=== PATIENT | male | born 1990 | race Asian ===

== ENCOUNTER 2019-04-23 20:24 | Emergency (ER) | payer BC ==
[~2019-04-23] VITALS: Ht 165.1 cm; Wt 68.0 kg
[2019-04-23] MEDS ORDERED: ACETAMINOPHEN 325 MG TAB PO ONE (21:00)
[2019-04-23 21:22] LABS: Basophils # (auto) 0 uL; Basophils % (auto) 0.4 % (0.0-2.0); Eosinophils # (auto) 0.1 uL; Eosinophils % (auto) 0.8 % (0.0-7.0); Hematocrit 43.8 % (41.0-53.0); Hemoglobin 14.7 g/dL (13.5-17.5); Lymphocytes # (auto) 2.2 uL; Lymphocytes % (auto) 19.7 % (10.0-50.0); Mean Corpuscular Hemoglobin 28.1 pg (28.0-32.0); Mean Corpuscular Hgb Conc. 33.6 g/dL (32.0-36.0); Mean Corpuscular Volume 83.7 fL (80.0-100.0); Monocytes # (auto) 1.2 uL; Monocytes % (auto) 10.5 % (0.0-12.0); Neutrophils # (auto) 7.5 uL; Neutrophils % (auto) 68.6 % (37.0-80.0); Nucleated Red Blood Cells % 0.1 %; Platelet Count (auto) 319 10^3/uL (140-450); Red Blood Cells 5.24 10^6/uL (4.5-5.90); Red Cell Distribution Width 15.3 % (11.8-14.3)
[2019-04-23 21:39] LABS: Albumin 3.9 g/dL (3.4-5.0); BUN/Creatinine Ratio 9.3; Calcium 9.1 mg/dL (8.5-10.1)
[2019-04-23 21:42] LABS: Bilirubin, Total 0.7 mg/dL (0.2-1.0); Total Protein 8.7 g/dL (6.4-8.2)
[2019-04-24] MEDS ORDERED: BUPIVACAINE 0.25% INJ 50ML VIAL IJ ONE (03:30)
[2019-04-24] MEDS ORDERED: LIDOCAINE 1% HCL (LOCAL ANESTH.) INJ 20ML MDV ONE (04:08)
[2019-04-24] MEDS ORDERED: HYDROcodone-ACET 5/325MG TAB PO ONE (04:30)
[2019-04-24] MEDS ORDERED: LIDOCAINE HCL 100 MG/5ML (2%) SYRG INJ IV ONE (04:30)
[2019-04-24 05:00] VITALS: BP 127/79
[2019-04-24] MEDS ORDERED: cefTRIAXone 1GM/50ML D5W 50 ML IV ONE (05:15)
== END 2019-04-24 05:52 | disposition home or self-care (01) ==
LOC: ER 20:27
DX: M71.561 Other bursitis, not elsewhere classified, right knee (principal); L03.115 Cellulitis of right lower limb
CPT/HCPCS: 73562; 87205; 89051; 96365; 99284; J0696; J2001; J3490